=== PATIENT | female | born 1965 | race Caucasian/White ===

== ENCOUNTER 2017-03-12 10:24 | Inpatient (IN) | payer SELFPAY ==
[2017-03-12] VITALS (9 sets, daily range): BP systolic 111–134; BP diastolic 72–90; PULSE 82–106; RESP 18–22; TEMP 37.2–37.9; O2SAT 85–93; BMI 29.4; BMI 30.2
[2017-03-12 12:20] LABS: UTC Influenza A Antigen Negative (Negative); UTC Influenza B Antigen Negative (Negative)
--- NOTE | 2017-03-12 12:51 | PC.NURSE ---
QUANTITATIVE DEVELOPER SPOKE TO PT. WEAKNESS AND FATIGUE. DRY HEAVING AND NOT KEEPING DOWN FLUIDS X 6 DAYS. REPEATED SPO2 AND ONLY 88%. DENIES HX OF TOBACCO ABUSE OR COPD. SOA LAST SEVERAL DAYS. HARD TO GET UP TO RESTROOM. NONPROD COUGH WHEN LAYING FLAT. QUANTITATIVE DEVELOPER DISCUSSED POSSIBLE DIFFERENTIALS WITH PATIENT AND [facility] GUIDELINES. PT WAS AGREEABLE TO TRANSFER TO ER. [facility] CALLED REPORT TO PARAS PIZARRO MD. BED 4 AVAILABLE.
--- NOTE | 2017-03-12 12:56 | XR_ITS ---
XR chest 2V HISTORY: ITS.REASON: COUGH ORDERING PHYSICIAN: Andrzej Amado PATIENT AGE: 51 years COMPARISON: None available FINDINGS: The cardiomediastinal silhouette and pulmonary vascularity are within normal limits. There is consolidation in the right upper lobe, right middle lobe, and left lower lobe posteriorly consistent with bilateral pneumonia. No effusions or obvious cavitation. No acute bony abnormalities. IMPRESSION: Bilateral pneumonia
[2017-03-12 13:40] LABS: Basophils % 0.1 % (0.1-2.0); Eosinophils # 0.1 K/mm3 (0.0-0.4); Eosinophils % 0.3 % (0.1-12.0); Hematocrit 44.4 % (37.0-47.0); Hemoglobin 14.5 g/dL (12.2-16.2); Lymphocytes # 0.9 K/mm3 (0.7-4.5); Lymphocytes % 4.9 K/mm3 (10-50); Mean Corpuscular HGB Conc 32.7 g/dL (31.8-35.4); Mean Corpuscular Hemoglobin 25.5 pg (27.0-31.2); Mean Platelet Volume 8.5 fl (7.4-10.4); Monocytes % 5.3 % (1.7-9.3); Neutrophils # 16.4 K/mm3 (1.8-7.8); Neutrophils % 89.4 % (37.0-80.0); Platelet Count 334 K/mm3 (142-424); Red Blood Count 5.69 M/mm3 (4.20-5.40); Red Cell Distribution Width 12.7 % (11.5-17.5); White Blood Count 18.4 K/mm3 (4.8-10.8)
[2017-03-12 13:43] LABS: MANUAL DIFFERENTIAL MANUAL DIFFERENTIAL (MANUAL DIFF)
[2017-03-12 13:48] LABS: Alanine Aminotransferase 27 U/L (12-78); Albumin Level 3.1 gm/dL (3.4-5.0); Albumin/Globulin Ratio 0.6 (1.1-1.8); Alkaline Phosphatase 110 U/L (46-116); Anion Gap 13.2 mEq/L (5-15); Aspartate Amino Transferase 17 U/L (15-37); Bilirubin,Total 0.7 mg/dL (0.2-1.0); Blood Urea Nitrogen 15 mg/dL (7-18); Calcium 9.4 mg/dL (8.5-10.1); Carbon Dioxide 29 mmol/L (21.0-32.0); Chloride 91 mmol/L (98-107); Creatinine Clearance Estimated 91 mg/ml (0-300); Creatinine,Serum 0.93 mg/dL (0.55-1.02); Estimated Glomerular Filt Rate > 60 ml/min (>60); GFR (African American) > 60 ML/MIN (>60); Glucose 102 mg/dL (74-106); Potassium 3.2 mmoL/L (3.5-5.1); Sodium 130 mmol/L (136-145); Total Protein,Serum 8.1 gm/dL (6.4-8.2)
[2017-03-12 13:52] LABS: Lactic Acid 1.3 mmol/L (0.4-2.0)
--- NOTE | 2017-03-12 14:06 | HMH.EDSOB ---
ED Disposition Clinical Impression: Pneumonia, Community acquired pneumonia Disposition: Admitted As Inpatient Condition on Discharge: [facility] - Critical Care Critical Care Time: No Attestation: On 03/12/17, the high probability of a clinically significant, sudden or life threatening deterioration of the following system(s) required my full and direct attention, intervention and personal management. The time I documented below is in addition to time spent performing reported procedures but includes the following listed in this critical care notation. Medical Decision Making Vital Signs: 03/12/17 11:39 03/12/17 12:57 03/12/17 13:32 Temperature 99 F 100.1 F H Temperature Source Temporal Artery Scan Oral Pulse Rate 91 H Pulse Rate [Left] 91 H 89 Respiratory Rate 20 22 Blood Pressure [Right Arm] 121/78 134/72 Blood Pressure Mean [Right Arm] 92 92 Blood Pressure Source [Right Arm] Automatic Cuff Automatic Cuff Blood Pressure Position [Right Arm] Sitting Sitting 02 Sat by Pulse Oximetry 92 L 85 L Oxygen Delivery Method Room Air Room Air - Lab Data Lab Results 03/12/17 11:44: Influenza Type A Ag Negative, Influenza Type B Ag Negative 03/12/17 13:20: WBC 18.4 H, RBC 5.69 H, Hgb 14.5, Hct 44.4, MCV 78.0 L, MCH 25.5 L, MCHC 32.7, RDW 12.7, Plt Count 334, MPV 8.5, Neut % (Auto) 89.4 H, Lymph % (Auto) 4.9 L, [place] % (Auto) 5.3, Eos % (Auto) 0.3, Baso % (Auto) 0.1, Neut # (Auto) 16.4 H, Lymph # (Auto) 0.9, [place] # (Auto) 1.0, Eos # (Auto) 0.1, Baso # (Auto) 0.0, Total Counted 100, Neutrophils % (Manual) 89 H, Lymphocytes % (Manual) 5 L, Monocytes % (Manual) 6, Platelet Estimate Normal, Hypochromasia 1+, Microcytosis 1+ 03/12/17 13:20: Sodium 130 L, Potassium 3.2 L, Chloride 91 L, Carbon Dioxide 29, Anion Gap 13.2, BUN 15, Creatinine 0.93, Estimated Creat Clear 91, Estimated GFR > 60, Est GFR ( Amer) > 60, Glucose 102, Calcium 9.4, Total Bilirubin 0.7, AST 17, ALT 27, Alkaline Phosphatase 110, Total Protein 8.1, Albumin 3.1 L, Globulin 5.0 H, Albumin/Globulin Ratio 0.6 L 03/12/17 13:20: Lactic Acid 1.3 03/12/17 13:20: Influenza Type A Ag Negative, Influenza Type B Ag Negative Result diagrams: 03/12/17 13:20 03/12/17 13:20 Orders (Tests/Meds): ED MEDICATIONS Discontinued Medications Generic Name Dose Route Start Last Admin Trade Name Freq PRN Reason Stop Dose Admin Albuterol/Ipratropium 3 ml 03/12/17 13:21 03/12/17 13:31 Duoneb 3ml Neb IH 03/12/17 13:22 3 ml ONCE ONE Administration Ceftriaxone Sodium 1 gm/ 50 mls @ 100 mls/hr 03/12/17 14:21 03/12/17 14:38 Sodium Chloride IV 03/12/17 14:50 100 mls/hr ONCE ONE Administration Methylprednisolone Sodium Succinate 125 mg 03/12/17 13:20 03/12/17 13:22 Solu-Medrol 125mg/2ml Vial IV 03/12/17 13:21 125 mg ONCE ONE Administration ORDERS Category Date Time Status Chest XR 2 view (NOT portable) [XR chest 2V] Stat Exams 03/12/17 12:56 Taken Blood Culture Stat Micro 03/12/17 13:20 Received - Radiology Data #2 Image(s): Chest Image Reviewed: Yes I reviewed the patient's radiology results RUL infiltrate; well circumscribed, but no AFL; suspicion for other diagnostic entity; radiologist reading pending - Physician Consults Physician Consulted: Kamila Time: 14:20 Comment/Response: Ayla and I reviewed my CXR reading and my concern about desaturation on RA as well as significantly abnormal CXR, may need inpatient CT. Agrees to admission. - Hubert Inquiry Pt receiving controlled substance: No Medical Decision Making Narrative: Abnormal CXR, desats immediately when oxygen removed but stable at transfer. Rocephin initiated in ED> Resp/SOB HPI - General Chief Complaint: Shortness of Breath/Dyspnea Stated Complaint: cant eat fever nausea cant sleep cough chest conge Time Seen by Provider: 03/12/17 13:30 Mode of Arrival: Wheelchair Source of Information: Patient Limitations: No Limitations Descrip
--- NOTE | 2017-03-12 14:15 | ED_ITS ---
ED Disposition Clinical Impression: Pneumonia, Community acquired pneumonia Disposition: Admitted As Inpatient Condition on Discharge: [facility] - Critical Care Critical Care Time: No Attestation: On 03/12/17, the high probability of a clinically significant, sudden or life threatening deterioration of the following system(s) required my full and direct attention, intervention and personal management. The time I documented below is in addition to time spent performing reported procedures but includes the following listed in this critical care notation. Medical Decision Making Vital Signs: 03/12/17 11:39 03/12/17 12:57 03/12/17 13:32 Temperature 99 F 100.1 F H Temperature Source Temporal Artery Scan Oral Pulse Rate 91 H Pulse Rate [Left] 91 H 89 Respiratory Rate 20 22 Blood Pressure [Right Arm] 121/78 134/72 Blood Pressure Mean [Right Arm] 92 92 Blood Pressure Source [Right Arm] Automatic Cuff Automatic Cuff Blood Pressure Position [Right Arm] Sitting Sitting 02 Sat by Pulse Oximetry 92 L 85 L Oxygen Delivery Method Room Air Room Air - Lab Data Lab Results 03/12/17 11:44: Influenza Type A Ag Negative, Influenza Type B Ag Negative 03/12/17 13:20: WBC 18.4 H, RBC 5.69 H, Hgb 14.5, Hct 44.4, MCV 78.0 L, MCH 25.5 L, MCHC 32.7, RDW 12.7, Plt Count 334, MPV 8.5, Neut % (Auto) 89.4 H, Lymph % (Auto) 4.9 L, [place] % (Auto) 5.3, Eos % (Auto) 0.3, Baso % (Auto) 0.1, Neut # (Auto) 16.4 H, Lymph # (Auto) 0.9, [place] # (Auto) 1.0, Eos # (Auto) 0.1, Baso # (Auto) 0.0, Total Counted 100, Neutrophils % (Manual) 89 H, Lymphocytes % (Manual) 5 L, Monocytes % (Manual) 6, Platelet Estimate Normal, Hypochromasia 1+, Microcytosis 1+ 03/12/17 13:20: Sodium 130 L, Potassium 3.2 L, Chloride 91 L, Carbon Dioxide 29 , Anion Gap 13.2, BUN 15, Creatinine 0.93, Estimated Creat Clear 91, Estimated GFR > 60, Est GFR ( Amer) > 60, Glucose 102, Calcium 9.4, Total Bilirubin 0.7, AST 17, ALT 27, Alkaline Phosphatase 110, Total Protein 8.1, Albumin 3.1 L, Globulin 5.0 H, Albumin/Globulin Ratio 0.6 L 03/12/17 13:20: Lactic Acid 1.3 03/12/17 13:20: Influenza Type A Ag Negative, Influenza Type B Ag Negative Result diagrams: 03/12/17 13:20 03/12/17 13:20 Orders (Tests/Meds): ED MEDICATIONS Discontinued Medications Generic Name Dose Route Start Last Admin Trade Name Freq PRN Reason Stop Dose Admin Albuterol/Ipratropium 3 ml 03/12/17 13:21 03/12/17 13:31 Duoneb 3ml Neb IH 03/12/17 13:22 3 ml ONCE ONE Administration Ceftriaxone Sodium 1 gm/ 50 mls @ 100 mls/hr 03/12/17 14:21 03/12/17 14:38 Sodium Chloride IV 03/12/17 14:50 100 mls/hr ONCE ONE Administration Methylprednisolone Sodium Succinate 125 mg 03/12/17 13:20 03/12/17 13:22 Solu-Medrol 125mg/2ml Vial IV 03/12/17 13:21 125 mg ONCE ONE Administration ORDERS Category Date Time Status Chest XR 2 view (NOT portable) [XR chest 2V] Stat Exams 03/12/17 12:56 Taken Blood Culture Stat Micro 03/12/17 13:20 Received - Radiology Data #2 Image(s): Chest Image Reviewed: Yes I reviewed the patient's radiology results RUL infiltrate; well circumscribed, but no AFL; suspicion for other diagnostic entity; radiologist reading pending - Physician Consults Physician Consulted: Kamila Time: 14:20 Comment/Response: Ayla turpin
[2017-03-12 14:24] LABS: Lymphocytes % 5 % (10-50); Monocytes % 6 % (2-9); Neutrophils % 89 % (42-76); Platelet Estimate Normal; Total Cells Counted 100
[2017-03-12 14:25] LABS: Hypochromasia 1+; Microcytosis 1+
[2017-03-12 14:52] LABS: UTC Influenza A Antigen Negative (Negative); UTC Influenza B Antigen Negative (Negative)
--- NOTE | 2017-03-12 16:17 | HMH.HP ---
*Admission Date: 03/12/17 *Chief complaint: Cough and shortness of breath *History of present illness: Presented to the ED with c/o 1 week of cough and increasing SOA. She reports low-grade fevers throughout her illness, poor appetite and fluid intake. Because of her increasing shortness of breath she came to the ED today and was found to have infiltrate on CXR, elevated WBC and mild hypokalemia. She was also requiring supplemental oxygen to maintain saturation above 90% and was admitted for treatment with IV antibiotics, supplemental oxygen and further workup. [facility] History Medical History: Reports:: Cancer (Breast s/p mastectomy), Hypertension Denies:: Asthma, Chronic Obstructive Pulmonary Disease (COPD) Other Medical History: Denies: Chemotherapy, Radiation Therapy Laterality Cases: Bilateral: Mastectomy Other Surgeries: Yes: - *Social History Smoking Status: Former smoker (occasional THC now) Tobacco Type: cigarettes Smoking End Date: Age 35 Alcohol Intake: never Substance Use Type: marijuana Occupational Status: employed (deliverer food) Household Members: spouse - Psychiatric History Expresses thoughts of harming self/others: None Suicide Plan Description: No Plan *Family Hx:: Cancer, Hypertension, Thyroid Disorder Review of Systems - Constitutional Reports anorexia, Reports body ache(s), Reports chills, Reports fever(s), Reports malaise, Reports weakness - Eyes Denies irritation - ENT Reports headache(s), Reports nasal congestion, Reports sore throat, Denies ear pain - *Cardiovascular Reports shortness of breath, Denies chest pain, Denies leg swelling - *Respiratory Reports change in phlegm color, Reports chest congestion, Reports cough, Reports shortness of breath, Reports shortness of breath with activity, Reports pain with cough, Reports wheezing Comments: using albuterol inhaler without relief - *Gastrointestinal Reports constipation, Denies abdominal pain, Denies vomiting - *Genitourinary Denies difficulty urinating - *Musculoskeletal Reports body aches, Denies back pain - Integumentary/Breasts Denies rash - *Neurologic Reports weakness - Psychiatric Denies anxiety Meds Home Medications Medication Instructions Recorded Confirmed Type Bisoprol/Hydrochlorothiazide 1 each PO BID 03/12/17 03/12/17 History [Bisoprolol-Hctz 5-6.25 mg Tab] Allergies Allergy/AdvReac Type Severity Reaction Status Date / Time No Known Allergies Allergy Verified 03/12/17 11:43 Exam Vital signs and Labs for Last 24 Hours: Temp Pulse Resp BP Pulse Ox 100.1 F H 86 20 124/78 85 L 03/12/17 12:57 03/12/17 15:19 03/12/17 15:19 03/12/17 15:19 03/12/17 12:57 I & O for Last 24 hours: Intake & Output 03/10/17 03/11/17 03/12/17 03/13/17 11:59 11:59 11:59 11:59 Intake Total 225 / 225 Balance 225 / 225 Comments: Pleasant female, appears comfortable in bed on NC oxygen. ENT exam unremarkable other than dry mucous membranes. Neck supple. Heart with RRR, no edema. Lungs with poor air movement on the right and faint basilar rales, left with expiratory wheezes. Abdomen soft, NT/ND, BS present. Able to move all extremities. Skin without rashes, normal color and turgor. Oriented x 3 without neurologic deficits H&P: Result - Impressions Leukocytosis, mild hypokalemia and hyponatremia - Imaging and Cardiology Chest x-ray Status: Preliminary report Assessment and Plan (1) Community acquired pneumonia Start date: 03/12/17 Current visit: Yes Status: Acute Qualifiers: Laterality: right Category: Medical Code(s): J18.9 - Pneumonia, unspecified organism (2) Leukocytosis Start date: 03/12/17 Current visit: Yes Status: Acute Qualifiers: Leukocytosis type: bandemia Qualified Code(s): D72.825 - Bandemia Category: Medical Code(s): D72.829 - Elevated white blood cell count, unspecified (3) Hypokalemia Start date:
--- NOTE | 2017-03-12 16:20 | P.HP_ITS ---
*Admission Date: 03/12/17 *Chief complaint: Cough and shortness of breath *History of present illness: Presented to the ED with c/o 1 week of cough and increasing SOA. She reports low -grade fevers throughout her illness, poor appetite and fluid intake. Because of her increasing shortness of breath she came to the ED today and was found to have infiltrate on CXR, elevated WBC and mild hypokalemia. She was also requiring supplemental oxygen to maintain saturation above 90% and was admitted for treatment with IV antibiotics, supplemental oxygen and further workup. [facility] History Medical History: Reports:: Cancer (Breast s/p mastectomy), Hypertension Denies:: Asthma, Chronic Obstructive Pulmonary Disease (COPD) Other Medical History: Denies: Chemotherapy, Radiation Therapy Laterality Cases: Bilateral: Mastectomy Other Surgeries: Yes: - *Social History Smoking Status: Former smoker (occasional THC now) Tobacco Type: cigarettes Smoking End Date: Age 35 Alcohol Intake: never Substance Use Type: marijuana Occupational Status: employed (seafood process worker) Household Members: spouse - Psychiatric History Expresses thoughts of harming self/others: None Suicide Plan Description: No Plan *Family Hx:: Cancer, Hypertension, Thyroid Disorder Review of Systems - Constitutional Reports anorexia, Reports body ache(s), Reports chills, Reports fever(s), Reports malaise, Reports weakness - Eyes Denies irritation - ENT Reports headache(s), Reports nasal congestion, Reports sore throat, Denies ear pain - *Cardiovascular Reports shortness of breath, Denies chest pain, Denies leg swelling - *Respiratory Reports change in phlegm color, Reports chest congestion, Reports cough, Reports shortness of breath, Reports shortness of breath with activity, Reports pain with cough, Reports wheezing Comments: using albuterol inhaler without relief - *Gastrointestinal Reports constipation, Denies abdominal pain, Denies vomiting - *Genitourinary Denies difficulty urinating - *Musculoskeletal Reports body aches, Denies back pain - Integumentary/Breasts Denies rash - *Neurologic Reports weakness - Psychiatric Denies anxiety Meds Home Medications Medication Instructions Recorded Confirmed Type Bisoprol/Hydrochlorothiazide 1 each PO BID 03/12/17 03/12/17 History [Bisoprolol-Hctz 5-6.25 mg Tab] Allergies Allergy/AdvReac Type Severity Reaction Status Date / Time No Known Allergies Allergy Verified 03/12/17 11:43 Exam Vital signs and Labs for Last 24 Hours: Temp Pulse Resp BP Pulse Ox 100.1 F H 86 20 124/78 85 L 03/12/17 12:57 03/12/17 15:19 03/12/17 15:19 03/12/17 15:19 03/12/17 12:57 I & O for Last 24 hours: Intake & Output 03/10/17 03/11/17 03/12/17 03/13/17 11:59 11:59 11:59 11:59 Intake Total 225 / 225 Balance 225 / 225 Comments: Pleasant female, appears comfortable in bed on NC oxygen. ENT exam unremarkable other than dry mucous membranes. Neck supple. Heart with RRR, no edema. Lungs with poor air movement on the right and faint basilar rales, left with expiratory wheezes. Abdomen soft, NT/ND, BS present. Able to move all extremities. Skin without rashes, normal color and turgor. Oriented x 3 without neurologic deficits H&P: Result - Impressions Leukocytosis, mild hypokalemia and hy
[2017-03-13] VITALS (9 sets, daily range): BP systolic 120–138; BP diastolic 60–78; PULSE 76–112; RESP 17–24; TEMP 36.4–37.4; O2SAT 91–96
--- NOTE | 2017-03-13 | CT_ITS ---
CT chest w con HISTORY: CT chest w con HISTORY: Multilobar pneumonia, history of breast cancer ITS.REASON: MULTILOBAR PNEUMONIA ORDERING PHYSICIAN: Abdiaziz Treviño MD PATIENT AGE: 51 years TECHNIQUE: Axial images obtained. Sagittal and coronal reformatted images are also generated and reviewed. CONTRAST: 75ml Isovue 370 I.V. COMPARISON: Radiograph of 03/12/2017 FINDINGS: Lower pole the left lobe of the thyroid gland is enlarged. There is heterogeneous density within both lobes with suggestion of a 1.8 cm nodule of the left lobe. Thyroid ultrasound may be of further value No mediastinal or hilar adenopathy. Small nodes are present within the mediastinum and anna measuring up to 1 cm in the right hilar region. Normal heart size. No obvious pericardial effusion. There is slight increased density in the anterior mediastinum system with residual finding tissue. There is dense opacification involving the posterior segment of the right upper lobe scattered alveolar opacification in the right middle lobe and right lower lobe. There is somewhat dense opacification in both lung bases posteriorly. Patchy infiltrate is present within left upper lobe posteriorly. No suspicious nodules or central obstructing lesions are evident. No pleural effusions Upper abdominal images are unremarkable. There are degenerative changes in the thoracic spine with no obvious bony destructive process. No evidence of aortic aneurysm or central pulmonary embolus Bilateral mastectomies. IMPRESSION: 1. Bilateral pneumonia. 2. Enlarged left lobe of the thyroid gland with suspected 1.8 cm nodule which may be better evaluated with ultrasound.
--- NOTE | 2017-03-13 01:16 | PC.NURSE ---
PT REPORTS SHE HASN'T BEEN EATING WELL FOR APPROXIMATELY4 DAYS R/T COUGHING AND NOT FEELING WE..
--- NOTE | 2017-03-13 01:28 | PC.NURSE ---
PT IS INDEPENDENT, HAS HER OWN HOUSE SHOES - REFUSED NON-SKID SOCKS, REFUSED JENNA HOSE, WITNESSED STEADY GAIT, CALL LIGHT EXPLAINED AND W/I REACH, OBTAINED REQUESTED CUP OF ICE TO EASE COUGH, AGREES TO RING WITH ANY NEEDS.
--- NOTE | 2017-03-13 04:13 | PC.NURSE ---
Intermittent sleep tonight. Pt does have what she calls coughing fits for which I have been taking her cups of ice to ease her cough. Gave her robituusin in earlier shift. Pt has a distinct lung sound - inspiratory bloop sound in right, lateral, middle lobe. Unsure of what sound is or how to better describe it, but occurs with each breath. In addition, lung sounds are tight and diminished throughout posteriorly with nonproductive cough. Encouraged pt to keep throat moist to help with cough. Independent with care, witnessed steady gait, has her own house shoes and refused Teds. Nothing acute to report from beginning of shift, poc continues, pt rings appropriatley and remained safe this shift.
--- NOTE | 2017-03-13 07:55 | HMH.PHAVTE ---
[facility] VTE Monitoring - Patient Demographics Admission date: 03/12/17 Report Date: 03/13/17 Time: 07:55 Allergies/Adverse Reactions: No Known Allergies Allergy (Verified 03/12/17 11:43) Height: 1.65 m Weight: 80.91 kg Patient Problems: Current Active Problems Pneumonia (Acute) Community acquired pneumonia (Acute) Leukocytosis (Acute) Hypokalemia (Acute) Hyponatremia (Acute) - VTE Risk Labs: VTE Related Lab Results Hgb 14.5 g/dL (12.2-16.2) 03/12/17 13:20 Hct 44.4 % (37.0-47.0) 03/12/17 13:20 Plt Count 334 K/mm3 (142-424) 03/12/17 13:20 BUN 15 mg/dL (7-18) 03/12/17 13:20 Creatinine 0.93 mg/dL (0.55-1.02) 03/12/17 13:20 Estimated Creat Clear 91 mg/ml (0-300) 03/12/17 13:20 Was VTE Risk Assessment Performed: Yes VTE Risk Level: Very Low Risk Clinical Trial Participant: No - Prophylaxis Types of VTE Prophylaxis: TEDS Knee High
--- NOTE | 2017-03-13 08:20 | P.PN_ITS ---
Internal Medicine - PN: Subj *Date: 03/13/17 *Time: 08:18 Interval history: Patient continues to have shortness of air and coughing, feels slightly better than yesterday, no vomiting noted. Exam Vital signs and Labs for Last 24 Hours: Temp Pulse Resp BP Pulse Ox 97.5 F L 98 H 24 138/77 91 L 03/13/17 06:02 03/13/17 06:02 03/13/17 06:02 03/13/17 06:02 03/13/17 06:02 I & O for Last 24 hours: Intake & Output 03/10/17 03/11/17 03/12/17 03/13/17 11:59 11:59 11:59 11:59 Intake Total 942 / 942 Balance 942 / 942 Microbiology Reports for the Last 24 Hours: Microbiology 03/12/17 19:15 Sputum - Expectorated Sputum Gram Stain - Final 03/12/17 19:15 Sputum - Expectorated Sputum Sputum Culture - Preliminary Narrative: Patient is alert, awake, appears well oxygenated and well hydrated. Lungs have rhonchi crackles throughout, especially in both middle lung [place]. Heart rate regular. Surgical status from her mastectomy is noted. No perfusion deficits. No clubbing. Assessment and Plan (1) History of breast cancer in female Current visit: Yes Status: Acute Category: Medical Code(s): Z85.3 - Personal history of malignant neoplasm of breast (2) Community acquired pneumonia Current visit: Yes Status: Acute Qualifiers: Laterality: right Category: Medical Code(s): J18.9 - Pneumonia, unspecified organism (3) Hypokalemia Current visit: Yes Status: Acute Category: Medical Code(s): E87.6 - Hypokalemia (4) Hyponatremia Current visit: Yes Status: Acute Category: Medical Code(s): E87.1 - Hypo- osmolality and hyponatremia (5) Leukocytosis Current visit: Yes Status: Acute Qualifiers: Leukocytosis type: bandemia Qualified Code(s): D72.825 - Bandemia Category: Medical Code(s): D72.829 - Elevated white blood cell count, unspecified (6) Pneumonia Current visit: Yes Status: Acute Category: Medical Code(s): J18.9 - Pneumonia, unspecified organism - Assessment and plan all Dx Assessment and Plan for all problems:: Slight improvement, watch culture results. Watch leukocytosis today. Add clindamycin given possibility of postobstructive pneumonia, CT scan given her history of cancer and multilobar infiltrates.
[2017-03-13 09:05] LABS: Anion Gap 11.5 mEq/L (5-15); Blood Urea Nitrogen 13 mg/dL (7-18); Carbon Dioxide 26 mmol/L (21.0-32.0); Chloride 97 mmol/L (98-107); Creatinine Clearance Estimated 112 mg/ml (0-300); Creatinine,Serum 0.76 mg/dL (0.55-1.02); Estimated Glomerular Filt Rate > 60 ml/min (>60); GFR (African American) > 60 ML/MIN (>60); Glucose 164 mg/dL (74-106); Sodium 132 mmol/L (136-145)
[2017-03-13 09:07] LABS: Basophils % 0.2 % (0.1-2.0); Eosinophils % 0.2 % (0.1-12.0); Hematocrit 39.3 % (37.0-47.0); Lymphocytes # 0.7 K/mm3 (0.7-4.5); Lymphocytes % 4.7 K/mm3 (10-50); Mean Corpuscular HGB Conc 32.8 g/dL (31.8-35.4); Mean Corpuscular Hemoglobin 25.3 pg (27.0-31.2); Mean Corpuscular Volume 77.3 fl (81-99); Mean Platelet Volume 8.5 fl (7.4-10.4); Monocytes # 0.5 K/mm3 (0.1-1.0); Monocytes % 3.3 % (1.7-9.3); Neutrophils # 14.4 K/mm3 (1.8-7.8); Neutrophils % 91.7 % (37.0-80.0); Platelet Count 364 K/mm3 (142-424); Potassium 2.5 mmoL/L (3.5-5.1); Red Blood Count 5.09 M/mm3 (4.20-5.40); Red Cell Distribution Width 12.9 % (11.5-17.5); White Blood Count 15.7 K/mm3 (4.8-10.8)
[2017-03-13 09:26] LABS: MANUAL DIFFERENTIAL MANUAL DIFFERENTIAL (MANUAL DIFF)
--- NOTE | 2017-03-13 11:13 | CARE MANAGER ---
MS SAMUELS WAS ADMITTED WITH BILATERAL PNEUMONIA AND IS BEING TREATED WITH IVF'S,IV ANTIBIOTICS,IV STEROIDS,OXYGEN AND MONITORING. SHE IS A SELF PAY PATIENT WHO WILL SEE OUR FINANCIAL COUNCELOR. CM STAFF WILL CONTINUE TO MONITOR AND ASSIST NEEDED.
[2017-03-13 12:05] LABS: Lymphocytes % 3 % (10-50); Monocytes % 3 % (2-9); Neutrophils % 94 % (42-76); Total Cells Counted 100
[2017-03-13 12:06] LABS: Platelet Estimate Normal
[2017-03-13 12:24] LABS: RBC Morphology Normal
--- NOTE | 2017-03-13 19:14 | PC.NURSE ---
Report given to Dale Matute RN.
[2017-03-14] VITALS (11 sets, daily range): BP systolic 122–153; BP diastolic 69–91; PULSE 75–109; RESP 16–22; TEMP 36.1–36.7; O2SAT 90–97
--- NOTE | 2017-03-14 03:43 | PC.NURSE ---
PT IS A&OX3. SHE REPORTS THAT SHE WAS ABLE TO EAT A LITTLE BIT TODAY. SHE REPORTED THAT SHE HAD NOT HAD A BM IN OVER A WEEK BUT THAT SHE HAD NOT EATEN IN A WEEK. SHE HAS A NON-PRODUCTIVE COUGH. CRACKLES IN HER LEFT BASE.
[2017-03-14 07:15] LABS: Alanine Aminotransferase 37 U/L (12-78); Albumin Level 2.7 gm/dL (3.4-5.0); Albumin/Globulin Ratio 0.8 (1.1-1.8); Alkaline Phosphatase 81 U/L (46-116); Aspartate Amino Transferase 30 U/L (15-37); Bilirubin,Total 0.2 mg/dL (0.2-1.0); Blood Urea Nitrogen 13 mg/dL (7-18); Calcium 8.6 mg/dL (8.5-10.1); Carbon Dioxide 27 mmol/L (21.0-32.0); Chloride 100 mmol/L (98-107); Creatinine Clearance Estimated 118 mL/min (0-300); Creatinine,Serum 0.73 mg/dL (0.55-1.02); Estimated Glomerular Filt Rate > 60 ml/min (>60); GFR (African American) > 60 ML/MIN (>60); Globulin 3.5 gm/dl (1.3-3.2); Glucose 149 mg/dL (74-106); Sodium 139 mmol/L (136-145); Total Protein,Serum 6.2 gm/dL (6.4-8.2)
--- NOTE | 2017-03-14 07:24 | PC.NURSE ---
PT IS A LEFT LIMB ALERT. REPORT GIVEN TO JOSE
--- NOTE | 2017-03-14 07:25 | PC.NURSE ---
Report to Candida Ellis WC/SRNA
--- NOTE | 2017-03-14 08:56 | P.PN_ITS ---
Internal Medicine - PN: Subj *Date: 03/14/17 *Time: 08:54 Interval history: Patient feels somewhat better, continues to have some dyspnea, continues to have some coughing. However, is afebrile. Yesterday evening I discussed her CT scan with her that showed no evidence of tumor or malignancy, but did show multilobar pneumonia as previously noted. Exam Vital signs and Labs for Last 24 Hours: Temp Pulse Resp BP Pulse Ox 97.0 F L 94 H 20 135/79 93 L 03/14/17 08:00 03/14/17 08:00 03/14/17 08:00 03/14/17 08:00 03/14/17 08:00 Short CBC 03/13/17 Range/Units 08:37 WBC 15.7 H (4.8-10.8) K/mm3 Hgb 13.0 D (12.2-16.2) g/dL Hct 39.3 (37.0-47.0) % Plt Count 364 (142-424) K/mm3 BMP 03/13/17 03/14/17 08:37 05:45 Sodium 132 L 139 Potassium 2.5 L* D 3.0 L Chloride 97 L 100 Carbon Dioxide 26 27 BUN 13 13 Creatinine 0.76 0.73 Glucose 164 H D 149 H Calcium 8.6 Liver Function 03/14/17 Range/Units 05:45 Total Bilirubin 0.2 (0.2-1.0) mg/dL AST 30 D (15-37) U/L ALT 37 D (12-78) U/L Alkaline Phosphatase 81 (46-116) U/L Albumin 2.7 L (3.4-5.0) gm/dL I & O for Last 24 hours: Intake & Output 03/11/17 03/12/17 03/13/17 03/14/17 11:59 11:59 11:59 11:59 Intake Total 1062 / 1062 2134 / 2134 Balance 1062 / 1062 2134 / 213 Microbiology Reports for the Last 24 Hours: Microbiology 03/12/17 19:15 Sputum - Expectorated Sputum Gram Stain - Final 03/12/17 19:15 Sputum - Expectorated Sputum Sputum Culture - Preliminary Narrative: Patient is pleasant and alert, talkative, right lung with crackles, good air movement, left lung is much clearer. Abdomen soft and nontender Assessment and Plan (1) History of breast cancer in female Current visit: Yes Status: Acute Category: Medical Code(s): Z85.3 - Personal history of malignant neoplasm of breast (2) Community acquired pneumonia Current visit: Yes Status: Acute Qualifiers: Laterality: right Category: Medical Code(s): J18.9 - Pneumonia, unspecified organism (3) Hypokalemia Current visit: Yes Status: Acute Category: Medical Code(s): E87.6 - Hypokalemia (4) Hyponatremia Current visit: Yes Status: Acute Category: Medical Code(s): E87.1 - Hypo- osmolality and hyponatremia (5) Leukocytosis Current visit: Yes Status: Acute Qualifiers: Leukocytosis type: bandemia Qualified Code(s): D72.825 - Bandemia Category: Medical Code(s): D72.829 - Elevated white blood cell count, unspecified (6) Pneumonia Current visit: Yes Status: Acute Category: Medical Code(s): J18.9 - Pneumonia, unspecified organism - Assessment and plan all Dx Assessment and Plan for all problems:: CT scan reassuring, Gram stain shows gram-positive cocci, await formal culture results. Repeat labs in 48 hours. Hypokalemia improving. Continue current therapy.
--- NOTE | 2017-03-14 10:44 | PC.NURSE ---
0735 dr key notified of potassium of 3.0
--- NOTE | 2017-03-14 16:22 | PC.NURSE ---
pt stable. crackles noted in right base only, rather than bilateral bases this am. humidification added to patients oxygen. pt reports relief from dry nose and throat. pt states is feels like cough is becoming loose now, feels like she might actually get something up soon. pt given cough meds prn about every 4-6 hours.
--- NOTE | 2017-03-14 19:26 | PC.NURSE ---
report given to greta sims rn
[2017-03-15] VITALS (14 sets, daily range): BP systolic 116–155; BP diastolic 60–91; PULSE 65–105; RESP 18–22; TEMP 36.2–36.8; O2SAT 90–96
--- NOTE | 2017-03-15 06:39 | PC.NURSE ---
PT REFUSED A BATH X 2. NURSE NOTIFIED
--- NOTE | 2017-03-15 07:27 | PC.NURSE ---
REPORT GIVEN TO Candida BOND WC/SRNA
--- NOTE | 2017-03-15 07:52 | P.PN_ITS ---
Internal Medicine - PN: Subj *Date: 03/15/17 *Time: 07:51 Interval history: Patient feels somewhat better, continues to have some dyspnea, continues to have some coughing. However, is afebrile. Sputum culture shows Streptococcus pneumonia, sensitivities pending. Exam Vital signs and Labs for Last 24 Hours: Temp Pulse Resp BP Pulse Ox 98.0 F 84 18 139/76 92 L 03/15/17 04:06 03/15/17 06:17 03/15/17 04:06 03/15/17 04:06 03/15/17 06:17 I & O for Last 24 hours: Intake & Output 03/12/17 03/13/17 03/14/17 03/15/17 11:59 11:59 11:59 11:59 Intake Total 1062 / 1062 2134 / 2134 600 / 600 Balance 1062 / 1062 2134 / 2134 600 / 600 Microbiology Reports for the Last 24 Hours: Microbiology 03/12/17 19:15 Sputum - Expectorated Sputum Gram Stain - Final 03/12/17 19:15 Sputum - Expectorated Sputum Sputum Culture - Preliminary Streptococcus pneumoniae Narrative: Patient is pleasant, alert, oriented, afebrile. Lungs have rhonchi and crackles in the right middle lung field, better air movement, no wheezing. No edema, no clubbing, heart rate regular without murmurs. Assessment and Plan (1) History of breast cancer in female Current visit: Yes Status: Acute Category: Medical Code(s): Z85.3 - Personal history of malignant neoplasm of breast (2) Community acquired pneumonia Current visit: Yes Status: Acute Qualifiers: Laterality: right Category: Medical Code(s): J18.9 - Pneumonia, unspecified organism (3) Hypokalemia Current visit: Yes Status: Acute Category: Medical Code(s): E87.6 - Hypokalemia (4) Hyponatremia Current visit: Yes Status: Acute Category: Medical Code(s): E87.1 - Hypo- osmolality and hyponatremia (5) Leukocytosis Current visit: Yes Status: Acute Qualifiers: Leukocytosis type: bandemia Qualified Code(s): D72.825 - Bandemia Category: Medical Code(s): D72.829 - Elevated white blood cell count, unspecified (6) Pneumonia Current visit: Yes Status: Acute Category: Medical Code(s): J18.9 - Pneumonia, unspecified organism - Assessment and plan all Dx Assessment and Plan for all problems:: Await sensitivities of Streptococcus pneumonia which is the etiologic agent of her multilobar pneumonia. O2 weaning today. Possible discharge tomorrow?
--- NOTE | 2017-03-15 09:13 | PC.NURSE ---
PROVIDED PT WITH PRN COUGH MEDICATION PER REQUEST T/O SHIFT. 2LNC TOLERATED WELL. SLEPT WELL. VSS. WILL CONTINUE TO MONITOR.
--- NOTE | 2017-03-16 03:54 | PC.NURSE ---
MEDICATED WITH PRN COUGH MEDICATION AT BEGINNING OF SHIFT. TOLERATED RA WELL. SCATTERED WHEEZING NOTED ON ANTERIOR PORTION OF LUNG HENLEY PER AUSCULTATION. REFUSING IVF'S. ADEQUATE INTAKE NOTED. PROVIDED PT WITH SOUP/SHERBERT AT BEGINNING OF SHIFT AND DRINKING WATER T/O SHIFT. NO COMPLAINTS STATED. VSS. WILL CONTINUE TO MONITOR.
[2017-03-16 04:00] VITALS: BP 155/88; PULSE 84; RESP 20; TEMP 36.6; O2SAT 94
[2017-03-16 04:04] VITALS: O2SAT 91
--- NOTE | 2017-03-16 06:06 | PC.NURSE ---
TOLERATED R LIMB ALERT WELL THIS SHIFT.
[2017-03-16 06:08] VITALS: PULSE 86; PULSE 90
[2017-03-16 06:19] LABS: Hemoglobin 11.8 g/dL (12.2-16.2); Red Blood Count 4.68 M/mm3 (4.20-5.40)
[2017-03-16 06:20] LABS: Mean Corpuscular HGB Conc 31.8 g/dL (31.8-35.4); Mean Corpuscular Hemoglobin 25.1 pg (27.0-31.2); Mean Corpuscular Volume 79.1 fl (81-99)
[2017-03-16 06:21] LABS: Basophils % 0.7 % (0.1-2.0); Eosinophils % 0.2 % (0.1-12.0); Lymphocytes # 0.9 K/mm3 (0.7-4.5); Lymphocytes % 6.5 K/mm3 (10-50); Mean Platelet Volume 7.6 fl (7.4-10.4); Monocytes # 0.4 K/mm3 (0.1-1.0); Monocytes % 3.1 % (1.7-9.3); Neutrophils # 12.5 K/mm3 (1.8-7.8); Neutrophils % 89.4 % (37.0-80.0); Platelet Count 448 K/mm3 (142-424)
[2017-03-16 06:22] LABS: Anion Gap 10.2 mEq/L (5-15); Basophils # 0.1 K/mm3 (0-0.2); Blood Urea Nitrogen 15 mg/dL (7-18); Carbon Dioxide 30 mmol/L (21.0-32.0); Chloride 102 mmol/L (98-107); Creatinine Clearance Estimated 118 mL/min (0-300); Creatinine,Serum 0.73 mg/dL (0.55-1.02); Estimated Glomerular Filt Rate > 60 ml/min (>60); GFR (African American) > 60 ML/MIN (>60); Glucose 138 mg/dL (74-106); Potassium 3.2 mmoL/L (3.5-5.1); Sodium 139 mmol/L (136-145)
[2017-03-16 06:23] LABS: MANUAL DIFFERENTIAL MANUAL DIFFERENTIAL (MANUAL DIFF)
--- NOTE | 2017-03-16 07:21 | PC.NURSE ---
REPORT GIVEN TO Payton BENSON
--- NOTE | 2017-03-16 07:36 | PC.NURSE ---
REPORT GIVEN TO DL FINE AT THIS TIME
--- NOTE | 2017-03-16 07:59 | HMH.DCSUM ---
General - General Admission date: 03/12/17 Discharge date: 03/16/17 HPI HPI: Presented to the ED with c/o 1 week of cough and increasing SOA. She reports low-grade fevers throughout her illness, poor appetite and fluid intake. Because of her increasing shortness of breath she came to the ED today and was found to have infiltrate on CXR, elevated WBC and mild hypokalemia. She was also requiring supplemental oxygen to maintain saturation above 90% and was admitted for treatment with IV antibiotics, supplemental oxygen and further workup. [facility] History Medical History: Reports:: Cancer (Breast s/p mastectomy), Hypertension Denies:: Asthma, Chronic Obstructive Pulmonary Disease (COPD) Other Medical History: Denies: Chemotherapy, Radiation Therapy Laterality Cases: Bilateral: Mastectomy Other Surgeries: Yes: Objective Vital signs: Temp Pulse Resp BP Pulse Ox 97.8 F 90 20 155/88 91 L 03/16/17 04:00 03/16/17 06:08 03/16/17 04:00 03/16/17 04:00 03/16/17 04:04 Narrative: Patient on admission had crackles in all lung baldwin, dyspneic, and hypoxic. Please see admission H&P document for details. Hospital Course Hospital Course: She was admitted, placed on IV antibiotics and oxygen therapy along with nebulizers and was hydrated. She felt better over the next 24 hours. Sputum culture grew Streptococcus pneumonia, sensitive to penicillin and she improved very nicely on empiric community-acquired pneumonia protocol regimen of ceftriaxone and gentamicin. Her exam also improved, oxygen requirement resolved. This morning she was doing very nicely, coughing with minimal yellow sputum production. Her lung exam improved with only minimal rhonchi in the right middle and lower lung field but good air movement otherwise. Heart rate regular, lungs clear, no dehydration status, alert, oriented ?3 with no rash. She will be discharged home today with Omnicef 300 twice daily, cough medication and short-term follow-up., Results Labs on day of discharge: Labs from last 24 hours 03/16/17 03/16/17 06:00 06:00 WBC 14.0 H RBC 4.68 Hgb 11.8 L Hct 37.0 MCV 79.1 L MCH 25.1 L MCHC 31.8 RDW 13.0 Plt Count 448 H MPV 7.6 Neut % (Auto) 89.4 H Lymph % (Auto) 6.5 L Bucks % (Auto) 3.1 Eos % (Auto) 0.2 Baso % (Auto) 0.7 Neut # (Auto) 12.5 H Lymph # (Auto) 0.9 Bucks # (Auto) 0.4 Eos # (Auto) 0.0 Baso # (Auto) 0.1 Sodium 139 Potassium 3.2 L Chloride 102 Carbon Dioxide 30 Anion Gap 10.2 BUN 15 Creatinine 0.73 Estimated Creat Clear 118 Estimated GFR > 60 Est GFR ( Amer) > 60 Glucose 138 H DS: Diagnosis - Discharge Diagnosis (1) History of breast cancer in female Status: Acute (2) Community acquired pneumonia Status: Acute (3) Hypokalemia Status: Acute (4) Hyponatremia Status: Acute (5) Leukocytosis Status: Acute (6) Pneumonia Status: Acute Meds Home Medications Medication Instructions Recorded Confirmed Type Bisoprol/Hydrochlorothiazide 1 each PO BID 03/12/17 03/12/17 History [Bisoprolol-Hctz 5-6.25 mg Tab] Allergies Allergy/AdvReac Type Severity Reaction Status Date / Time No Known Allergies Allergy Verified 03/12/17 11:43 Disposition Disposition: Home, Self-Care
--- NOTE | 2017-03-16 08:02 | P.DS_ITS ---
General - General Admission date: 03/12/17 Discharge date: 03/16/17 HPI HPI: Presented to the ED with c/o 1 week of cough and increasing SOA. She reports low -grade fevers throughout her illness, poor appetite and fluid intake. Because of her increasing shortness of breath she came to the ED today and was found to have infiltrate on CXR, elevated WBC and mild hypokalemia. She was also requiring supplemental oxygen to maintain saturation above 90% and was admitted for treatment with IV antibiotics, supplemental oxygen and further workup. [facility] History Medical History: Reports:: Cancer (Breast s/p mastectomy), Hypertension Denies:: Asthma, Chronic Obstructive Pulmonary Disease (COPD) Other Medical History: Denies: Chemotherapy, Radiation Therapy Laterality Cases: Bilateral: Mastectomy Other Surgeries: Yes: Objective Vital signs: Temp Pulse Resp BP Pulse Ox 97.8 F 90 20 155/88 91 L 03/16/17 04:00 03/16/17 06:08 03/16/17 04:00 03/16/17 04:00 03/16/17 04:04 Narrative: Patient on admission had crackles in all lung baldwin, dyspneic, and hypoxic. Please see admission H&P document for details. Hospital Course Hospital Course: She was admitted, placed on IV antibiotics and oxygen therapy along with nebulizers and was hydrated. She felt better over the next 24 hours. Sputum culture grew Streptococcus pneumonia, sensitive to penicillin and she improved very nicely on empiric community-acquired pneumonia protocol regimen of ceftriaxone and gentamicin. Her exam also improved, oxygen requirement resolved. This morning she was doing very nicely, coughing with minimal yellow sputum production. Her lung exam improved with only minimal rhonchi in the right middle and lower lung field but good air movement otherwise. Heart rate regular , lungs clear, no dehydration status, alert, oriented ?3 with no rash. She will be discharged home today with Omnicef 300 twice daily, cough medication and short-term follow-up., Results Labs on day of discharge: Labs from last 24 hours 03/16/17 03/16/17 06:00 06:00 WBC 14.0 H RBC 4.68 Hgb 11.8 L Hct 37.0 MCV 79.1 L MCH 25.1 L MCHC 31.8 RDW 13.0 Plt Count 448 H MPV 7.6 Neut % (Auto) 89.4 H Lymph % (Auto) 6.5 L Posey % (Auto) 3.1 Eos % (Auto) 0.2 Baso % (Auto) 0.7 Neut # (Auto) 12.5 H Lymph # (Auto) 0.9 Posey # (Auto) 0.4 Eos # (Auto) 0.0 Baso # (Auto) 0.1 Sodium 139 Potassium 3.2 L Chloride 102 Carbon Dioxide 30 Anion Gap 10.2 BUN 15 Creatinine 0.73 Estimated Creat Clear 118 Estimated GFR > 60 Est GFR ( Amer) > 60 Glucose 138 H DS: Diagnosis - Discharge Diagnosis (1) History of breast cancer in female Status: Acute (2) Community acquired pneumonia Status: Acute (3) Hypokalemia Status: Acute (4) Hyponatremia Status: Acute (5) Leukocytosis Status: Acute (6) Pneumonia Status: Acute Meds Home Medications Medication Instructions Recorded Confirmed Type Bisoprol/Hydrochlorothiazide 1 each PO BID 03/12/17 03/12/17 History [Bisoprolol-Hctz 5-6.25 mg Tab
[2017-03-16 08:45] VITALS: BP 144/96; PULSE 91; RESP 18; TEMP 36.4; O2SAT 91
[2017-03-16 09:41] LABS: Lymphocytes % 7 % (10-50); Monocytes % 7 % (2-9); Neutrophils % 85 % (42-76); Total Cells Counted 100
[2017-03-16 09:42] LABS: Platelet Estimate Normal; RBC Morphology Normal
--- NOTE | 2017-03-16 09:43 | PC.NURSE ---
I am documenting information provided by JIMMY White on downtime forms for 03/15/17.
--- NOTE | 2017-03-16 15:49 | PC.NURSE ---
Addendum entered by Sona Royal RN 03/16/17 17:21: Scribing only per Storm Royal RN. Original Note: Downtime documentation from 03/15/17 from downtime documentation forms for Perla Saucedo RN per Storm Royal RN.
== END 2017-03-16 09:15 | disposition home or self-care (01) | DRG 194 ==
LOC: UTC 10:32 → ER 12:54 → 2ND 14:39
PROVIDERS: Emergency Medicine; Admitting Provider Internal Medicine Adolescent Medicine; Emergency Provider Nurse Practitioner Family; Family Provider Nurse Practitioner Family; PCP Nurse Practitioner Family; Visit Provider Internal Medicine Adolescent Medicine
DX: J18.9 Pneumonia, unspecified organism (principal); E87.1 Hypo-osmolality and hyponatremia; E87.6 Hypokalemia; Z85.3 Personal history of malignant neoplasm of breast
CPT/HCPCS: 36415; 71046; 71260; 80048; 80053; 83605; 85007; 85025; 87040; 87070; 87077; 87186; 87205; 87276; 94640; 94760; 94761; 99284; 99406; J0456; Q9967

== ENCOUNTER 2023-12-06 13:33 | Emergency (ER) | payer SELFPAY ==
[2023-12-06 13:50] VITALS: BP 133/76; PULSE 59; RESP 24; TEMP 36.9; O2SAT 95; BMI 35.6
--- NOTE | 2023-12-06 14:10 | ED_ITS ---
Discharge Plan Disposition Patient Disposition: Home, Self-Care Condition: Good Prescriptions Prescriptions: New azithromycin [Zithromax Z-Cody] 250 mg tablet See Rx Instructions .ROUTE .COMPLEX 5 Days Qty: 6 0RF Rx Instructions: For 250 mg dose pack: take 500 mg today (day 1), then 250 mg for 4 days (days 2-5) prednisone 20 mg tablet 20 mg PO BID 5 Days Qty: 10 0RF No Action cetirizine [Zyrtec] 10 mg Tablet 10 mg PO DAILY trazodone 100 mg tablet 100 mg PO HS Patient Comments: TAKE 1 TABLET BY MOUTH AT BEDTIME fluticasone propionate 50 mcg/actuation spray,suspension 2 spray INTRANASAL DAILY Patient Comments: USE 2 SPRAY(S) IN EACH NOSTRIL ONCE DAILY bisoprolol-hydrochlorothiazide 1 EACH tablet 1 each PO BID Referrals Follow up/Referrals: Abdiaziz Treviño MD [Primary Care Provider] - See instructions Activity Restrictions/Add. Instructions Additional Instructions/Restrictions: * Start antibiotic today. Be sure to complete entire prescription even if feeling better * Monitor temp. Tylenol every 4 hours as needed and / or ibuprofen every 6 hours as needed ( As long as your primary care physician has told you that it ok to take both. For fever/aches/pains ER if no less than 101 despite Tylenol or Motrin * Humidifier/vaporizer or hot steamy shower * Mucinex for your cough and cough suppressant only at night. Be sure to drink lots of water. Insurance may not cover a prescriptions for mucinex. Might be cheaper to purchase over the counter *Start steroid today. Helps with inflammation therefore, cough and wheezing. Follow directions on the package. Reviewed side effects. Patient reports taking them before. Follow up IMMEDIATELY for new or worsening of symptoms OR no noticeable improvement over the next 48-72 hours. 911 immediately for any life threatening symptoms such as chest pain or difficulty breathing Clinical Impressions Clinical Impression: Bronchitis Instructions Patient Instructions: Acute Bronchitis, DI for Cough -- Adult Print Language Print Language: Malay Discharge ED Provider: Hillary Villaseñor [facility] [place] HPI General Stated complaint: congested, headache Time Seen by Provider: 12/06/23 14:10 History of Present Illness Provider Complaint: Patient states that she has been sick a couple weeks and feels like it has moved into her chest area States at times she will cough up small amount of mucous but feels congested and she has had a bad cough, States she has been taking her allergy medication and OTC medications but nothing has helped so she came in to get checked worried she may need some antibiotics Related Data Home Medications ?Medication ?Instructions ?Recorded ?Confirmed bisoprolol 5 1 each PO BID Hypertension 03/12/17 12/06/23 mg-hydrochlorothiazide 6.25 mg tablet cetirizine 10 mg tablet (Zyrtec) 10 mg PO DAILY 12/06/23 12/06/23 fluticasone propionate 50 2 spray intranasal DAILY 12/06/23 12/06/23 mcg/actuation nasal spray,suspension trazodone 100 mg tablet 100 mg PO HS 12/06/23 12/06/23 Previous Rx's ?Medication ?Instructions ?Recorded azithromycin 250 mg tablet See Rx Instructions PO .COMPLEX 5 12/06/23 (Zithromax Z-Cody) days #6 tabs prednisone 20 mg tablet 20 mg PO BID 5 days #10 tabs 12/06/23 Allergies Allergy/AdvReac Type Severity Reaction Status Date / Time No Known Allergies Allergy Verified 05/29/20 08:59 [facility] Disclaimer: The information contained in this section may have been updated after the patient was seen, as this information can be updated by other users. Medical History (Updated 12/06/23 @ 14:16 by Hillary Villaseñor APRN) Hypertension Social History Smoking Status: Former smoker tobacco type: cigarettes second hand exposure: No alcohol intake: never substance use type: marijuana current occupational status: employed Travel in the last 8 weeks: None household members: spouse current occupation: [employer] caffeine: Yes ([employer]) ROS Obtained: Yes All systems reviewed & no additional complaints except as documented and Yes Systems reviewed as appropriate & no additional complaints except as documented Constitutional Constitutional: Reports system reviewed and no additional complaints, except as documented and Reports as per HPI ENT Ears, Nose, Mouth, and Throat: Reports system reviewed and no additional complaints, except as documented and Reports as per HPI Cardiovascular Cardiovascular: Reports system reviewed and no additional complaints, except as documented and Reports as per HPI Respiratory Respiratory: Reports system reviewed and no additional complaints, except as documented, Reports as per HPI, Denies shortness of breath, Reports chest congestion and Reports cough Gastrointestinal Gastrointestingal: Reports system reviewed and no additional complaints, except as documented and as per HPI Physical Exam General General appearance: alert and in no apparent distress ENT ENT exam: Present mucous membranes moist Expanded ENT Exam Nose exam: Present sinus tenderness Throat exam: Present other (PND noted with mild pharyngeal erythema) Respiratory Respiratory exam: Present normal lung sounds bilaterally; Absent respiratory distress or wheezes Cardiovascular Cardiovascular exam: Present regular rate, normal rhythm and normal heart sounds Neurological Exam Neurological exam: Present alert, oriented X3 and normal gait Medical Decision Making Medical Records Screening: Per USPSTF and CDC recommendations, given the prevalence of disease in our region, it is our hospital?s policy to screen for HIV and viral Hepatitis for all patients aged 18 and over and those with ongoing risk factors. Hubert Inquiry Pt receiving controlled substance: No Hubert was queried for this patient: No
[2023-12-06 14:18] VITALS: BP 133/76; PULSE 59; RESP 24; TEMP 36.9; O2SAT 95
== END 2023-12-06 14:20 | disposition home or self-care (01) ==
PROVIDERS: Emergency Provider Nurse Practitioner; PCP Internal Medicine Adolescent Medicine
DX: J20.9 Acute bronchitis, unspecified (principal); R05.9 Cough, unspecified
CPT/HCPCS: 99204; 99212; G0463

== ENCOUNTER 2023-12-23 17:46 | Emergency (ER) | payer SELFPAY ==
--- NOTE | 2023-12-23 17:56 | XR_ITS ---
PROCEDURE INFORMATION: Exam: XR Left Wrist Exam date and time: 12/23/2023 6:26 PM Age: 58 years old Clinical indication: Pain; Wrist; Left; Additional info: Fall/pain TECHNIQUE: Imaging protocol: Radiologic exam of the left wrist. Views: 3 or more views. COMPARISON: No relevant prior studies available. FINDINGS: Bones/joints: No acute fracture. Cysts within scaphoid. No dislocation. Soft tissues: Unremarkable. IMPRESSION: No fracture. If pain persists, suggest splinting and follow up radiographs in 7-10 days.
--- NOTE | 2023-12-23 17:56 | XR_ITS ---
PROCEDURE INFORMATION: Exam: XR Left Forearm Exam date and time: 12/23/2023 6:26 PM Age: 58 years old Clinical indication: Pain; Lower or forearm; Left; Additional info: Fall/pain TECHNIQUE: Imaging protocol: Radiologic exam of the left forearm. Views: 2 views. COMPARISON: CR XR FOREARM LT 2V 12/23/2023 6:26 PM FINDINGS: Bones/joints: Questionable irregularity along base of fifth metacarpal. Soft tissues: Unremarkable. IMPRESSION: Questionable irregularity along base of fifth metacarpal. Suggest CT to exclude fracture.
--- NOTE | 2023-12-23 17:56 | XR_ITS ---
PROCEDURE INFORMATION: Exam: XR Left Hand Exam date and time: 12/23/2023 6:26 PM Age: 58 years old Clinical indication: Pain; Hand; Left; Additional info: Fall/pain TECHNIQUE: Imaging protocol: Radiologic exam of the left hand. Views: 3 or more views. COMPARISON: No relevant prior studies available. FINDINGS: Bones/joints: Questionable faint lucency along base of fourth metacarpal. No dislocation. Soft tissues: Unremarkable. IMPRESSION: Questionable faint lucency along base of fourth metacarpal. Suggest CT to exclude fracture.
[2023-12-23 18:07] VITALS: BP 144/70; PULSE 60; RESP 18; TEMP 37; O2SAT 97; BMI 35.0
--- NOTE | 2023-12-23 18:41 | EXP.UTC ---
Discharge Plan Disposition Patient Disposition: Home, Self-Care Condition: Good Prescriptions Prescriptions: No Action cetirizine [Zyrtec] 10 mg Tablet 10 mg PO DAILY bisoprolol-hydrochlorothiazide 1 EACH tablet 1 each PO BID promethazine-DM 6.25-15 mg/5 mL syrup 6.25 ml PO DIRECTED Patient Comments: TAKE 5 ML BY MOUTH EVERY 6 HOURS NEEDED FOR 10 DAYS albuterol sulfate 90 mcg/actuation HFA aerosol inhaler 90 mcg INHALATION DIRECTED Patient Comments: INHALE 2 PUFFS BY MOUTH EVERY 6 HOURS Referrals Follow up/Referrals: Abdiaziz Treviño MD [Primary Care Provider] - See instructions Jerald Jay DO [Staff Physician] - See instructions (Call office for appointment) Activity Restrictions/Add. Instructions Additional Instructions/Restrictions: *RICE, Rest the extremity, Ice 15-20 minutes 3-4 times daily, Compress- wear the sanket wrap as discussed as much as possible to help reduce swelling and pain, Elevate the extremity when at rest *Velcro wrist splint is for support and help control swelling, use it except in the shower. Be sure that is not to tight but not to loose either *Elevate when resting? *Ibuprofen 600-800mg every 6-8 hours as needed for pain an inflammation. If need something more can take Tylenol in between doses of Ibuprofen to help Immediately follow up with your family doctor for new or worsening of symptoms, or no noticeable improvement over the next 3-5 days Call Orthopedic office for appointment and follow up with Orthopedics or your Family Doctor for furhter imaging Clinical Impressions Clinical Impression: Fall Instructions Patient Instructions: DI for Wrist Sprain, How To Perform RICE (Rest, Ice, Compress, Elevate) Print Language Print Language: Telugu Discharge ED Provider: Hillary Villaseñor [facility] [place] HPI General Stated complaint: AO 12/12 LT hand inj Mode of Arrival: Ambulatory Source of Information: Patient Time Seen by Provider: 12/23/23 18:05 Description of Symptoms (Recalled from Triage Doc. by RN): FELL AND THINK SHE BROKE HER LEFT HAND HEENT Symptoms (Recalled from RN notes): No Resp Symptoms (Recalled from RN notes): No Skin Symptoms (Recalled from RN notes): No MS Symptoms (Recalled from RN notes): Yes Functional Status (Recalled from RN notes): WNL History of Present Illness Provider Complaint: Patient states that she stubbed her toe and fell about 2 weeks ago and landed on her left hand States that since then she has been having pain, swelling and bruising to her left hand on the side of her little finger so today when it was still bothering her so she came in to get it checked Related Data Home Medications ?Medication ?Instructions ?Recorded ?Confirmed bisoprolol 5 1 each PO BID Hypertension 03/12/17 12/23/23 mg-hydrochlorothiazide 6.25 mg tablet cetirizine 10 mg tablet (Zyrtec) 10 mg PO DAILY 12/06/23 12/23/23 albuterol sulfate 90 mcg/actuation 90 mcg inhalation DIRECTED 12/23/23 12/23/23 aerosol inhaler promethazine-DM 6.25 mg-15 mg/5 mL 6.25 ml PO DIRECTED 12/23/23 12/23/23 oral syrup Allergies Allergy/AdvReac Type Severity Reaction Status Date / Time No Known Allergies Allergy Verified 05/29/20 08:59 Worker's Comp Is this a Worker's Comp case?: No PFSH [facility] Disclaimer: The information contained in this section may have been updated after the patient was seen, as this information can be updated by other users. Medical History (Updated 12/23/23 @ 19:49 by Hillary Villaseñor APRN) Hypertension Social History Smoking Status: Former smoker tobacco type: cigarettes second hand exposure: No alcohol intake: never substance use type: marijuana current occupational status: employed Travel in the last 8 weeks: None household members: spouse current occupation: [employer] caffeine: Yes ([employer]) ROS Obtained: Yes All systems reviewed & no additional complaints except as documented and Yes Systems reviewed as appropriate & no additional complaints except as documented Constitutional Constitutional: Reports system reviewed and no additional complaints, except as documented and Reports as per HPI ENT Ears, Nose, Mouth, and Throat: Reports system reviewed and no additional complaints, except as documented and Reports as per HPI Cardiovascular Cardiovascular: Reports system reviewed and no additional complaints, except as documented and Reports as per HPI Respiratory Respiratory: Reports system reviewed and no additional complaints, except as documented and Reports as per HPI Gastrointestinal Gastrointestingal: Reports system reviewed and no additional complaints, except as documented and as per HPI Musculoskeletal Musculoskeletal: Reports system reviewed and no additional complaints, except as documented, Reports as per HPI and Reports other (pain and swelling in her left hand that shoots into forearm) Physical Exam General General appearance: alert and in no apparent distress Respiratory Respiratory exam: Present normal lung sounds bilaterally; Absent respiratory distress or wheezes Cardiovascular Cardiovascular exam: Present regular rate, normal rhythm and normal heart sounds Expanded Upper Extremity Exam Left: Forearm/Wrist exam: Present tenderness; Absent swelling, abrasion, laceration, ecchymosis or erythema Hand exam: Present tenderness, swelling and ecchymosis L/R Arms Top View: 1. bruising and mild swelling noted Neurological Exam Neurological exam: Present alert, oriented X3 and normal gait Medical Decision Making Medical Records Screening: Per USPSTF and CDC recommendations, given the prevalence of disease in our region, it is our hospital?s policy to screen for HIV and viral Hepatitis for all patients aged 18 and over and those with ongoing risk factors. Hubert Inquiry Pt receiving controlled substance: No Hubert was queried for this patient: No Vital Signs: 12/23/23 18:07 Temperature 98.6 F Temperature Source Oral Pulse Rate [Left Brachial] 60 Respiratory Rate 18 Blood Pressure [Left Arm] 144/70 H Blood Pressure Mean [Left Arm] 94 02 Sat by Pulse Oximetry 97 Orders (Tests/Meds): ORDERS Category Date Time Status Forearm XR left 2 views [XR forearm LT 2V] Stat Exams 12/23/23 17:56 Taken XR hand LT min 3V Stat Exams 12/23/23 17:56 Taken XR wrist LT min 3V Stat Exams 12/23/23 17:56 Taken Radiology Data #1: Image(s): Hand Image Reviewed: Yes I have reviewed radiologist's interpretation IMPRESSION: Questionable faint lucency along base of fourth metacarpal. Suggest CT to exclude fracture. #2: Image(s): Wrist Image Reviewed: Yes I have reviewed radiologist's interpretation IMPRESSION: No fracture. If pain persists, suggest splinting and follow up radiographs in 7-10 days. #3: Image(s): Forearm Image Reviewed: Yes I have reviewed radiologist's interpretation IMPRESSION: Questionable irregularity along base of fifth metacarpal. Suggest CT to exclude fracture. Procedures Orthopedic Splinting/Casting Injury #1: Side: left Upper Extremity Injury Location: wrist and hand Upper Extremity Immobilizer: wrist splint and applied by nurse/dr duenas Post Cast/Splinting Neuro Status: intact and no change Post Cast/Splinting Vasc Status: intact and no change
[2023-12-23 19:49] VITALS: BP 144/70; PULSE 60; RESP 18; TEMP 37
== END 2023-12-23 19:52 | disposition home or self-care (01) ==
PROVIDERS: Emergency Provider Nurse Practitioner; PCP Internal Medicine Adolescent Medicine
DX: M79.642 Pain in left hand (principal); W01.0XXA Fall on same level from slipping, tripping and stumbling without subsequent striking against object, initial encounter; Y93.9 Activity, unspecified
CPT/HCPCS: 73090; 73110; 73130; 99212; G0381